=== PATIENT | female | born 1995 | race Caucasian/White ===

== ENCOUNTER 2016-08-01 05:18 | Emergency (ER) | payer OTHER ==
[2016-08-01 06:27] LABS: ABSOLUTE NEUTROPHIL COUNT 9.7 K/mm3 (1.8-7.7); BASO % 0.3 % (0.2-1.0); EOS # 0.2 (0.0-0.5); EOS % 1.5 % (0.9-2.9); HEMATOCRIT 46.5 % (37.0-47.0); HEMOGLOBIN 15.4 gm/l (12.0-16.0); IMM NEUT% 0.3 % (0-1); LYMPH # 2.4 (1.0-4.8); LYMPH % 18.3 % (15-45); MEAN CELL VOLUME 89.4 fl (81.0-99.0); MEAN CORPUSCULAR HEMOGLOBIN 29.6 pg (27.0-31.0); MEAN CORPUSCULAR HGB CONC 33.1 g/dl (33.0-37.0); MEAN PLATELET VOLUME 10.3 fl (7.4-10.4); MONO # 0.8 (0.0-0.8); NEUT % 73.6 % (43-75); PLATELET COUNT 361 K/mm3 (130-400); RED CELL DISTRIBUTION WIDTH 13.9 % (11.5-14.5)
[2016-08-01 07:06] LABS: PH,URINE 6.5 (5.0-8.0); URINE APPEARANCE CLEAR; URINE BILIRUBIN NEGATIVE (NEGATIVE); URINE BLOOD TRACE (NEGATIVE); URINE COLOR YELLOW; URINE GLUCOSE (UA) NEGATIVE (NEGATIVE); URINE LEUKOCYTE ESTERASE NEGATIVE (NEGATIVE); URINE NITRITE NEGATIVE (NEGATIVE); URINE PROTEIN NEGATIVE (NEGATIVE); URINE UROBILINOGEN NORMAL (0-1 mg/dl)
[2016-08-01 07:11] LABS: URINE RBC 0-1 /hpf; URINE WBC NEG /hpf
[2016-08-01 07:12] LABS: URINE BACTERIA FEW; URINE EPITHELIAL CELLS MODERATE /hpf; URINE MUCUS 2+
--- NOTE | 2016-08-01 08:20 | US ---
OB COMP <14 WKS, OB TRANSVAGINAL CLINICAL HISTORY: 21-year-old female. Gestational age 4 weeks 5 days. First trimester bleeding. LMP 06/29/2016. EDC 04/05/2017 COMPARISON: None TECHNIQUE: Transabdominal and transvaginal. FINDINGS: Uterus: Normal size and shape. No gestational sac. Endometrium: Prior laminar appearance. 8 mm thickness. Right ovary: 3.0 x 2.1 x 2.3 cm. Normal blood flow. Left ovary: Left oophorectomy and salpingectomy. Free fluid: Minimal. Impression: of unknown location versus spontaneous . No intrauterine fluid collection with normal adnexa. If beta hCG level is greater than or equal to 3000, viable intrauterine is unlikely. However, a single beta hCG level should not be used as a criterion for definitive exclusion of a potentially normal intrauterine . Report was sent to the emergency department [facility], 08/01/2016 at 08:16
== END 2016-08-01 09:02 | disposition home or self-care (01) ==
LOC: ED 05:18
DX: O20.0 Threatened abortion (principal); O99.331 Smoking (tobacco) complicating pregnancy, first trimester; F17.210 Nicotine dependence, cigarettes, uncomplicated; Z3A.01 Less than 8 weeks gestation of pregnancy